=== PATIENT | male | born 1940 | race Caucasian/White ===

== ENCOUNTER 2021-05-29 11:00 | Day surgery (SDC) | payer OTHER ==
--- NOTE | 2021-05-26 12:35 | RAD REPORT ---
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 COMPARISON: Chest Pa And Lat (2 Views) dated 01/07/2018 FINDINGS: The lungs are mildly emphysematous but clear. Calcified benign granuloma seen in both lung s. The heart is normal in size. No displaced fractures. IMPRESSION: Mild COPD. The USPSTF recommends annual screening for lung cancer with low-dose CT (LDCT) in adults aged 50 to 8 0 years who have a 20 pack-year smoking history and currently smoke or have quit within the past 15 y ears.
[2021-05-26 12:40] LABS: Potassium 3.8 mmol/L (3.5-5.1)
[2021-05-26 12:44] LABS: Absolute Lymphocytes (CBC) 2.2 K/uL (0.7-4.9); Hematocrit 41.9 % (39.6-49.0); Lymphocytes % 26.9 % (15.3-44.8); MPV 7.8 fL (7.6-11.3); RBC Red Blood Cell Count 4.35 M/uL (4.33-5.43)
[~2021-05-29 11:00] MED LIST: ATROPINE SULF 1 MG/10 ML SYR IV ONE; HEPA 1000U/500MLS 2,000 UNIT/1,000 ML BAG IV ONE; LIDOCAINE 1% 20 ML MDV ONE
[2021-05-29] MEDS ORDERED: NA CHLORIDE 0.9% 500 ML ONE (11:31)
[2021-05-29] MEDS ORDERED: FENTANYL CITR 100 MCG/2 ML ONE (11:46)
[2021-05-29] MEDS ORDERED: MIDAZOLAM HCL 2 MG/2 ML INJ ONE (11:46)
[2021-05-29 12:15] VITALS: O2SAT 100
--- NOTE | 2021-05-29 13:14 | OP ---
Date of Procedure: 05/29/2021 Surgeon: ARTI SCHOFIELD Procedure Performed: Selective bilateral carotid angiogram. Indication: High-grade stenosis by Doppler. Complications: None. Access: Right femoral artery 6-Trinidadian closed with StarClose. Bleeding: Less than 10 mL. Anesthesia: Total sedation time was 20 minutes. Description Of Procedure: After risks, benefits, and alternatives were explained, the patient agreed to procedure and signed informed consent. The patient was brought into the cardiac catheterization laboratory, prepped and draped in usual sterile fashion. We gave fentanyl and Versed in incremental doses to achieve adequate moderate sedation. Then, we accessed right femoral artery using a micropun cture kit and ultrasound guidance and fluoroscopy and placed 6-Trinidadian [place] sheath and took a 6-Fr ench JR4 catheter into the aortic root and then selectively engaged the right common carotid artery a nd took standard views and then the left coronary artery was selectively engaged and took standard vi ews, then removed the catheter. Sheath was removed. Placed a StarClose for closure with good hemost asis. Findings: 1.Right common carotid artery is clean, no disease, and the right external and right internal caroti d arteries were all normal. 2.Left common carotid artery is normal, but the left internal carotid artery has 60% long stenosis. The left external carotid artery is normal. Conclusion: Moderate left internal carotid artery stenosis. Plan: Medical management for now and we will monitor for any symptoms. SR/MODL Voice ID: [id number] Report ID: [id number]
[2021-05-29 15:39] VITALS: BP 130/62; TEMP 97.3
== END 2021-05-29 15:18 | disposition home or self-care (01) ==
LOC: CCL 11:00
PROVIDERS: ATTEND Internal Medicine
DX: I65.22 Occlusion and stenosis of left carotid artery (principal); I10 Essential (primary) hypertension; E78.5 Hyperlipidemia, unspecified
CPT/HCPCS: 36222; 36415; 71046; 80048; 85025; 85610; 85730; 93005; C1893; J1644; J2250; J3010; J7040; U0003

== ENCOUNTER 2022-01-15 16:22 | Inpatient (IN) | payer OTHER ==
--- OUTSIDE RECORDS SUMMARY | 2022-01-15 16:25 | XMS REPORT | Continuity of Care Document ---
:1940 Author Organization [facility] t Address [address] [place] [address] Care Team Providers Name Role Phone KYLAH KATZ Primary Care Physician Unavailable Pob, Adc Lab Main Attending Clinician Unavailable Ki Cooper MD Attending Clinician KI COOPER Attending Clinician Unavailable Radiology Attending Clinician Unavailable Doctor Unassigned, [place] Attending Clinician Unavailable 1, Adc Lab Attending Clinician Unavailable Payers Payer Name Policy Type Policy Number Effective Date Expiration Date S ource Problems This patient has no known problems. Allergies, Adverse Reactions, Alerts Allergy Allergy Status Severity Reaction(s) Onset Inactive Treating Comm ents Source Name Type Date Date Clinician NO KNOWN Drug Active Univers ALLERGIE Class ity of [facility] Social History Social Habit Start Date Stop Date Quantity Comments Source Sex Assigned At [birth year] [facility] 00:00:00 00:00:00 Medical Branch Smoking Status Start Date Stop Date Source Tobacco smoking consumption [facility] Branch Medications This patient has no known medications. Immunizations Ordered Filled Immunization Date Status Comments [facility] e Immunization Name Name SARS-COV-2 COVID-19 2020-08-04 Completed Unive rsity of MODERNA VACCINE 00:00:00 [facility] SARS-COV-2 COVID-19 2020-07-07 Completed Unive rsity of MODERNA VACCINE 00:00:00 [facility] Branch Procedures This patient has no known procedures. Encounters Start End Encounter Admission Attending Care Care Encounter Source Date/Time Date/Time Type Type Clinicians Facility Department ID 2021-12-15 2021-12-15 Deputy K 9 Pob, Adc Lab Main [facility] 1.2.8 [id number] [facility] 08:00:00 08:15:00 Visit Ki Cooper [id number] almaz [facility] [id number] Rohan PETERSEN [id number] Ri dical [address] 2021-12-15 2021-12-15 Outpatient R ALLISON [facility] [id number] [facility] 08:00:00 08:00:00 KI muse [facility] 2019-01-06 2019-01-06 [facility] Radiology [facility] [id number] 07:40:55 23:59:00 Encounter Maricarmen [id number] [place] [id number] [place] [id number] 2019-01-06 2019-01-06 Orders Doctor DINESH [id number] 00:00:00 00:00:00 Only Unassigned, DANIEL [id number] [place] [facility] [id number] 2019-01-04 2019-01-04 [facility] Radiology [facility] [id number] 07:49:51 23:59:00 Encounter Maricarmen [id number] [place] [id number] [place] [id number] 2019-01-04 2019-01-04 Deputy K 9 1, Adc Lab [facility] [id number] 07:49:43 08:04:43 Visit Maricarmen [id number] [place] [id number] [place] [id number] Results This patient has no known results.
[2022-01-15 17:34] VITALS: BMI 21.5
[2022-01-15 18:06] LABS: Absolute Lymphocytes (CBC) 1.9 K/uL (0.7-4.9); Hematocrit 36.8 % (39.6-49.0); Lymphocytes % 26.3 % (15.3-44.8); MPV 7.1 fL (7.6-11.3); RBC Red Blood Cell Count 3.88 M/uL (4.33-5.43)
[2022-01-15 18:25] LABS: Albumin 3.5 g/dL (3.4-5.0); Bilirubin Direct 0.4 mg/dL (0-0.2); Bilirubin Total 1.2 mg/dL (0.2-1.0); Potassium 3.1 mmol/L (3.5-5.1)
[2022-01-15] MEDS ORDERED: ONDANSETRON 4 MG/2 ML VIAL IV PRN (18:42)
[2022-01-15] MEDS ORDERED: DICYCLOMINE HCL 10 MG CAP PO PRN (18:45)
[2022-01-15] MEDS: NA CHLORIDE 0.9% 1,000 ML IV SCH (19:36)
[2022-01-15] MEDS ORDERED: POTASSIUM CL SA 10 MEQ TAB PO ONE (20:00)
--- NOTE | 2022-01-15 20:52 | RAD REPORT ---
EXAM DESCRIPTION: RAD - Chest Pa And Lat (2 Views) - 01/15/2022 8:27 pm CLINICAL HISTORY: dehydration/weight loss Chest pain. COMPARISON: Chest Pa And Lat (2 Views) dated 05/26/2021; Chest Pa And Lat (2 Views) dated 01/07/2018 TECHNIQUE: PA and lateral views of the chest were obtained. FINDINGS: The lungs are hyperexpanded compatible with COPD. The heart is upper limit of normal in si ze. No fracture or aggressive bony process. Hiatal hernia. IMPRESSION: COPD without acute process identified. The USPSTF recommends annual screening for lung cancer with low-dose CT (LDCT) in adults aged 50 to 8 0 years who have a 20 pack-year smoking history and currently smoke or have quit within the past 15 y ears.
[2022-01-16] MEDS: NA CHLORIDE 0.9% 1,000 ML IV SCH ×3 (03:00→19:55)
[2022-01-16 06:21] LABS: Absolute Lymphocytes (CBC) 1.6 K/uL (0.7-4.9); Hematocrit 31.6 % (39.6-49.0); MCV 95.5 fL (80-100); MPV 7.4 fL (7.6-11.3); RBC Red Blood Cell Count 3.31 M/uL (4.33-5.43)
[2022-01-16 06:28] LABS: Potassium 3.5 mmol/L (3.5-5.1)
[2022-01-16 06:33] LABS: Albumin 2.8 g/dL (3.4-5.0); Bilirubin Direct 0.4 mg/dL (0-0.2); Protein, Total 5.8 g/dL (6.4-8.2)
[2022-01-16 06:36] LABS: Magnesium 1.1 mg/dL (1.8-2.4)
[2022-01-16] MEDS ORDERED: Magnesium Sulfate 2gm IVPB 2 G/50 ML BAG IV ONE (06:37)
[2022-01-16] MEDS: ATORVASTATIN 80 MG TAB PO SCH (20:00)
--- NOTE | 2022-01-16 20:57 | PN ---
Date of Progress Note: 01/16/2022 Patient feels somewhat better, this afternoon, although he states he does not feel back to baseline. However, his potassium and sodium have improved considerably. We are still monitoring his magnesium . We will hold off on his CAT scan until a.m. when his renal function should be well enough to allow the dye mainly because of weight loss and anorexia. His blood pressure is stable. We will hold the HCTZ and losartan at least overnight and monitor his blood work in the morning. Also slow down the IV. Advance his diet to full liquids and have PT evaluate him in the a.m. as well. HR/MODL Voice ID: [id number] Report ID: [id number]
[2022-01-17 06:34] LABS: Magnesium 1.7 mg/dL (1.8-2.4); Potassium 3.4 mmol/L (3.5-5.1)
[2022-01-17] MEDS ORDERED: HOME MED 1 EA UNK (Esomeprazole Magnesium [Nexium] 20 MG Capsule.Dr) PO SCH (09:00)
[2022-01-17] MEDS ORDERED: MAGNESIUM SULFATE 1 gm IVPB 1 GM/100 ML BAG IV ONE (09:00)
[2022-01-17] MEDS: HOME MED 1 EA UNK (Latanoprost/Pf [Latanoprost 0.005% Eye Drop] 7.5 ML Drops) OPTH SCH (09:00)
[2022-01-17] MEDS ORDERED: POTASSIUM CL SA 10 MEQ TAB PO ONE (09:00)
--- NOTE | 2022-01-17 11:02 | RAD REPORT ---
EXAM DESCRIPTION: CT - Abdomen Pelvis W Contrast - 01/17/2022 10:45 am CLINICAL HISTORY: weight loss / anorexia COMPARISON: <Comparisons> TECHNIQUE: Biphasic, helical CT imaging of the abdomen and pelvis was performed following 100 ml non -ionic IV contrast. Oral contrast was given. All CT scans are performed using dose optimization technique as appropriate and may include automated exposure control or mA/KV adjustment according to patient size. FINDINGS: No suspicious findings in the lung bases. An 8 mm calcified granuloma seen in the lower la teral right lung field. Minimal hiatal hernia is present. No cardiomegaly or pericardial effusion. The liver, spleen, and pancreas show no suspicious findings. Gallstones can be occult on CT imaging. Gallbladder wall appears slightly thickened and edematous. No abnormal biliary tree dilatation. Symmetric renal function is seen with no hydronephrosis or suspicious renal mass. No pyelonephritis o r acute parenchymal process. Urinary bladder is only partially filled. Anterior wall bladder divertic ulum is present. Francois appear prominent though this may be artifact of partial filling. Correlation i s needed with any clinical or laboratory findings of cystitis. No adrenal abnormalities. Francois of the stomach are thickened uniformly. However, there is no intraluminal content in this exagg erates wall thickness. No asymmetric wall thickening, mass or abnormal enhancement. Stomach can be re -evaluated with upper GI examination as an inpatient or outpatient. There is no small bowel dilatatio n or acute small bowel finding. Most of the oral contrast is in the colon. No acute colon process see n. No direct or indirect evidence for appendicitis. No free air or pneumatosis. Trace amount of free fluid is seen in the peritoneal cavity. No mass or bulky lymphadenopathy. Small fat only left inguinal hernia is present. No suspicious bony findings. IMPRESSION: Gallbladder francois appear slightly thickened and edematous. No intrahepatic dilatation. C ommon bile duct within normal range. Correlation is needed with any possible gallbladder process. Follow-up sonography can be obtained as warranted. Francois the stomach appear thickened but this is probably artifact of absent intraluminal content. Stom ach could be further evaluated with upper GI as an inpatient or outpatient. Trace intraperitoneal free fluid. Slightly accentuated urinary bladder francois. Cystitis is not excluded.
[2022-01-17] MEDS: PANTOPRAZOLE 40MG TABLET PO SCH (11:17)
[2022-01-17] MEDS: NA CHLORIDE 0.9% 1,000 ML IV SCH ×3 (11:17→20:22)
[2022-01-17] MEDS: BRINZOLAMIDE OPTH SCH (11:18)
[2022-01-17] MEDS: BRIMONIDINE TART OPTH SCH (11:18)
[2022-01-17 14:43] VITALS: O2SAT 100
[2022-01-17 16:20] LABS: Magnesium 2.1 mg/dL (1.8-2.4); Potassium 4.3 mmol/L (3.5-5.1)
--- NOTE | 2022-01-17 16:50 | PN ---
Date of Progress Note: 01/17/2022 The patient states he feels somewhat stronger today. His appetite is improved slightly. We will be advancing his diet for lunch, so electrolytes are still somewhat much improved. CAT scan did reveal some possibility of disease process leading to weight loss, some thickening of the francois of his stoma ch, bladder, possible gallbladder. On the other hand, the liver, spleen, and pancreas were normal. We will continue to replace his magnesium, potassium, and sodium. The probability of him being disch arged tomorrow if they are normal to follow up with endoscopic procedures with stomach, bladder, and possibly the colon. 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 This too will be evaluated as an outpatient basis. HR/MODL Voice ID: [id number] Report ID: [id number]
[2022-01-17] MEDS: ATORVASTATIN 80 MG TAB PO SCH (20:21)
[2022-01-18 03:26] LABS: Potassium 3.8 mmol/L (3.5-5.1)
[2022-01-18] MEDS: HOME MED 1 EA UNK (Latanoprost/Pf [Latanoprost 0.005% Eye Drop] 7.5 ML Drops) OPTH SCH (09:00)
[2022-01-18] MEDS ORDERED: POTASSIUM CL SA 10 MEQ TAB PO ONE (09:00)
[2022-01-18] MEDS: PANTOPRAZOLE 40MG TABLET PO SCH (11:32)
[2022-01-18] MEDS: BRIMONIDINE TART OPTH SCH (11:32)
[2022-01-18] MEDS: BRINZOLAMIDE OPTH SCH (11:32)
--- NOTE | 2022-01-18 17:13 | PN ---
Date of Progress Note: 01/18/2022 The patient states he continues to feel better, although he is not quite back at baseline and in fact as far as his is appetite concerned, he is eating better, but very little of his meals. This will h ave to be evaluated; however, he presents with him with a junctional arrhythmia. The first episode w as noted when he was up walking around. Since then, he has had a few episodes with relatively little activity. In view of this, I felt that he should be continued to be monitored and an echo and cardi ology consult. This will all be done on Wednesday. He is not available today and feel risk of being at home without knowing need for the etiology is not reasonable. His electrolytes are much more stable still present. HR/MODL Voice ID: [id number] Report ID: [id number]
[2022-01-18] MEDS: ATORVASTATIN 80 MG TAB PO SCH (20:50)
[2022-01-18] MEDS: NA CHLORIDE 0.9% 1,000 ML IV SCH (20:51)
[2022-01-19 06:12] LABS: Magnesium 1.7 mg/dL (1.8-2.4); Potassium 3.9 mmol/L (3.5-5.1)
--- NOTE | 2022-01-19 08:17 | EKG ---
Test Date: 2022-01-15 Test Time: 18:12:06 Health Outreach Worker: ANDRZEJ MEASUREMENT RESULTS: Intervals: Rate: 100 AR: QRSD: 98 QT: 376 QTc: 485 [place]: P: AR: QRS: 5 T: 41 INTERPRETIVE STATEMENTS: Atrial fibrillation with premature ventricular or aberrantly conducted complexes Prolonged QT Abnormal ECG Compared to ECG 05/26/2021 12:04:12 Ventricular premature complex(es) now present Prolonged QT interval now present Sinus rhythm no longer present Atrial premature complex(es) no longer present Aberrant conduction of supraventricular beat(s) no longer present Electronically Signed On 01-19-22 08:07:24 CDT by Charlie Farias
[2022-01-19] MEDS ORDERED: MAGNESIUM SULFATE 1 gm IVPB 1 GM/100 ML BAG IV ONE (09:00)
[2022-01-19] MEDS: BRIMONIDINE TART OPTH SCH (09:00)
[2022-01-19] MEDS ORDERED: POTASSIUM CL SA 10 MEQ TAB PO ONE (09:00)
[2022-01-19] MEDS: HOME MED 1 EA UNK (Latanoprost/Pf [Latanoprost 0.005% Eye Drop] 7.5 ML Drops) OPTH SCH (09:00)
[2022-01-19] MEDS: BRINZOLAMIDE OPTH SCH (09:00)
[2022-01-19] MEDS: PANTOPRAZOLE 40MG TABLET PO SCH (10:35)
--- NOTE | 2022-01-19 12:29 | CON ---
Date of Consultation: 01/19/2022 Admitted on 01/17/[address] Collazo's service because of dehydration. I saw the patient on 022 because arrhythmias. History Of Present Illness: Mr. Cheek is 81. Has a history of COPD, dyslipidemia, hypertension, be nign prostatic hypertrophy. He came in with dehydration and while he has been hydrated and he had so me episodes of what appeared to be junctional bradycardia without any hemodynamic compromise, hypoten radha, chest pain, nausea, vomiting, diaphoresis. Denied PND, orthopnea, pedal edema. He denied any palpitation or syncope. Denied any fever or chills. Past Medical History: As stated above. Allergies: NONE. Review of Systems: Negative. Social History: Negative. Family History: Negative. Medications: At home include inhalers, Lipitor, losartan, hydrochlorothiazide, and Flomax. Physical Examination: General: Very pleasant, no acute distress. Vital Signs: Sinus rhythm now, vital signs stable, afebrile. HEENT: Negative. Neck: Supple with no bruit. Chest: Clear. Cardiac: Revealed a regular rhythm and rate. No murmurs, gallops, or rubs. Abdomen: Benign. Extremities: Revealed no clubbing, cyanosis, or edema. Diagnostic Data: Showed chest x-ray with COPD. CT of the abdomen showed edematous gallbladder. Wor kup was negative. Impression And Plan: Junctional bradycardia, may be consistent with sick sinus syndrome. I would di scontinue hydrochlorothiazide. Continue with rest of the medications. Obtain a 2D echocardiogram, s upplement with magnesium, get an outpatient event monitor, hydrate him gently, and [facility]. His chronic obstructive pulmonary disease, dyslipidemia, benign prostatic hypertrophy are stable . Chronic obstructive pulmonary disease is stable. He has edematous gallbladder. I doubt that this has anything to do with his current status and I will leave that up to Dr. Collazo. NB/MODL Voice ID: [id number] Report ID: [id number]
--- NOTE | 2022-01-19 14:10 | ECHO ---
HEIGHT: 5 ft 7 in WEIGHT: 137 lb 6.4 oz DATE OF STUDY: 01/19/[address]: Monster Collazo MD 2-DIMENSIONAL: YES M.MODE: YES DOPPLER: YES COLOR FLOW: YES TDS: NO PORTABLE: YES DEFINITY: NO BUBBLE STUDY: NO DIAGNOSIS: ARRYTHMIA CARDIAC HISTORY: CATHERIZATION: NO SURGERY: NO PROSTHETIC VALVE: NO PACEMAKER: NO MEASUREMENTS (cm) DIASTOLIC (NORMALS) SYSTOLIC (NORMALS) IVSd 0.9 (0.6-1.2) LA Diam 2.9 (1.9-4.0) LVEF 57% LVIDd 3.0 (3.5-5.7) LVIDs 2.1 (2.0-3.5) %FS 29% LVPWd 0.9 (0.6-1.2) Ao Diam 2.0 (2.0-3.7) 2 DIMENSIONAL ASSESSMENT: RIGHT ATRIUM: NORMAL LEFT ATRIUM: NORMAL RIGHT VENTRICLE: NORMAL LEFT VENTRICLE: NORMAL TRICUSPID VALVE: MITRAL VALVE: PULMONIC VALVE: AORTIC VALVE: PERICARDIAL EFFUSION: NONE AORTIC ROOT: NORMAL LEFT VENTRICULAR WALL MOTION: NORMAL DOPPLER/COLOR FLOW: SEE BELOW COMMENTS: NORMAL LEFT VENTRICULAR EJECTION FRACTION 55-60% WITH NORMAL WALL MOTION. MILD MITRAL, TRICUSPID, PULMONARY, AND AORTIC REGURGITATION. TECHNOLOGIST: Ngozi SPENCER
[2022-01-19 17:01] VITALS: BP 141/60; TEMP 98.1
--- NOTE | 2022-01-19 21:42 | PN ---
Date of Progress Note: 01/19/2022 The patient states he feels somewhat better, has eaten a little bit more. Vital signs stable. He christie s had no further junctional rhythm problems seen by Cardiology. He felt he could be discharged on monitor. Lab work showed normal results, except for his magnesium which is borderline. He was, th erefore, discharged. Continue on medication except for his diuretic and has magnesium to his regimen. He will be seen in a couple days in my office for followup for his electrolytes and a referral will be made for Gastroenterology for EGD and colonoscopy for weight loss and anorexia with the possibili ty of the gallbladder, since if in fact, these scope procedures are normal. Discharge in good conditi on. HR/MODL Voice ID: [id number] Report ID: [id number]
== END 2022-01-19 18:02 | disposition home or self-care (01) | DRG 641 ==
LOC: ERHOLD 16:22 → 2ND 17:01 → OBSVTOIN 01-17 10:36 → 4TH 01-19 13:43
PROVIDERS: ADMIT Family Medicine; ATTEND Family Medicine
DX: E86.0 Dehydration (principal); N17.9 Acute kidney failure, unspecified; I49.9 Cardiac arrhythmia, unspecified; E87.6 Hypokalemia; J44.9 Chronic obstructive pulmonary disease, unspecified; E78.5 Hyperlipidemia, unspecified; I10 Essential (primary) hypertension; N40.0 Benign prostatic hyperplasia without lower urinary tract symptoms; R63.0 Anorexia; R63.4 Abnormal weight loss; Z68.21 Body mass index [BMI] 21.0-21.9, adult; Z79.899 Other long term (current) drug therapy
CPT/HCPCS: 36415; 71046; 74177; 80048; 80076; 82150; 83690; 83735; 84132; 85025; 87811; 93005; 93306; 97161; G0378; G0379; J3475; J7030; Q9967

== ENCOUNTER 2022-04-19 18:25 | Emergency (ER) | payer OTHER ==
--- OUTSIDE RECORDS SUMMARY | 2022-04-19 18:27 | XMS REPORT | Continuity of Care Document ---
:1940 Author Organization [facility] t Address [address] [place] [address] Care Team Providers Name Role Phone KYLAH KATZ Primary Care Physician Unavailable Pob, Adc Lab Main Attending Clinician Unavailable Ki Cooper MD Attending Clinician KI COOPER Attending Clinician Unavailable Radiology Attending Clinician Unavailable Doctor Unassigned, [employer] Attending Clinician Unavailable 1, Adc Lab Attending Clinician Unavailable Payers Payer Name Policy Type Policy Number Effective Date Expiration Date S ource Problems This patient has no known problems. Allergies, Adverse Reactions, Alerts Allergy Allergy Status Severity Reaction(s) Onset Inactive Treating Comm ents Source Name Type Date Date Clinician NO KNOWN Drug Active Univers ALLERGIE Class ity of [facility] Social History Social Habit Start Date Stop Date Quantity Comments Source Sex Assigned At [birth year] [facility] 00:00:00 00:00:00 Smoking Status Start Date Stop Date Source Tobacco smoking consumption unknown [facility] Medications Ordered Filled Start Stop Current Ordering Indication Dosage Frequency Signature Comments Components Source Medication Medication Date Date Medication? Clinician (SIG) Name Name esomeprazol Yes 40mg Take 40 mg Methodi e (NexIUM) 8-[address] 40 MG 14:36: Hospita capsule 06 l SIMBRINZA Yes INT 1 GTT Met hodi 1-0.2 % 6-[address] drops,suspe 00:00: Hospit [facility] 00 l Immunizations Ordered Filled Immunization Date Status Comments Sourc e Immunization Name Name SARS-COV-2 COVID-19 2020-08-04 Completed Unive rsity of MODERNA VACCINE 00:00:00 [facility] SARS-COV-2 COVID-19 2020-07-07 Completed Unive rsity of MODERNA VACCINE 00:00:00 [facility] Procedures This patient has no known procedures. Encounters Start End Encounter Admission Attending Care Care Encounter Source Date/Time Date/Time Type Type Clinicians Facility Department ID 2021-12-15 2021-12-15 [employer] Advisor Cj, Adc Lab Main [facility] 1.2.8 [id number] [id number] [facility] 08:00:00 08:15:00 Visit Ki Cooper [id number] ity [facility] [id number] Luis Armandonettie sony VASQUEZ [id number] [place] [address] 2021-12-15 2021-12-15 Outpatient R ALLISON [facility] [id number] [facility] 08:00:00 08:00:00 KI muse [facility] 2019-01-06 2019-01-06 [facility] Radiology [facility] 1.2.840.114 [id number] 07:40:55 23:59:00 Encounter [place] [id number] [place] 4.2.7.2.686 [facility] [id number] 2019-01-06 2019-01-06 Orders Doctor DINESH 1.2.840.114 [id number] 00:00:00 00:00:00 Only Unassigned, DANIEL [id number] [employer] [facility] [id number] [id number] 2019-01-04 2019-01-04 [facility] Radiology [facility] 1.2.840.114 [id number] 07:49:51 23:59:00 Encounter [place] [id number] [place] [id number] [facility] [id number] 2019-01-04 2019-01-04 [employer] Advisor 1, Adc Lab [facility] 1.2.840.114 [id number] 07:49:43 08:04:43 Visit [place] [id number] [place] [id number] [facility] [id number] Results This patient has no known results.
--- NOTE | 2022-04-19 20:16 | ER ---
Nurse's Notes [facility] Name: Afshin Cheek Age: 81 yrs Sex: Male : 1940 Arrival Date: 04/19/2022 Time: 18:26 Bed IW10 Private MD: Monster Collazo Diagnosis: Presentation: 04/19 20:01 Chief complaint: Patient states: called from [facility]. no response. registration reports as6 pt left. ED Course: 18:26 Patient arrived in ED. as 18:26 Monster Collazo MD is Private Physician. as 19:03 Hamilton Duran PA is PHCP. cp 19:03 Hamilton Gonzalez MD is Attending Physician. cp 19:59 Beth Bolanos MD is Attending Physician. cp 20:02 Patient's name was called from ER [facility]. No response. Unable to locate patient. Will as6 disposition as left without being seen by a provider. Administered Medications: No medications were administered Outcome: 20:15 Patient left the ED. as6 Signatures: Katherine Murdock as Hamilton Duran PA PA Pablo Fonseca, RN RN as6
== END 2022-04-19 20:15 | disposition left against medical advice (07) ==
LOC: ER 18:25
DX: Z53.21 Procedure and treatment not carried out due to patient leaving prior to being seen by health care provider (principal)
CPT/HCPCS: 99281